=== PATIENT | female | born 2005 | race Two or more races ===

== ENCOUNTER → 2025-03-15 | Emergency (ER) | payer MEDICAID ==
[~2025-03-15] VITALS: Ht 157.5 cm; Wt 68.0 kg
[2025-03-15 21:40] VITALS: BP 110/76; PULSE 86; RESP 20; TEMP 98.3; O2SAT 100
[2025-03-15 22:20] LABS: PLATELET COUNT (AUTO) 266 K/uL (150-450); RED BLOOD CELL COUNT(AUTO) 4.05 MIL/uL (4.00-5.20); RED CELL DISTRIBUTION WIDTH 14.3 % (11.5-14.5); WHITE BLOOD COUNT (AUTO) 7.2 K/uL (4.5-11.0)
[2025-03-15 22:27] LABS: CALCIUM, TOTAL 9.0 mg/dL (8.8-10.5); CREATININE 0.45 mg/dL (0.60-1.30); GLOMERULAR FILTR. RATE CALC > 60 mL/min (>60); GLUCOSE,RANDOM 87 mg/dL (70-110); SODIUM SERUM 139 mmol/L (136-145); UREA NITROGEN, BLOOD 8 mg/dL (7-18)
== END | disposition still patient (30) ==
LOC: EMS 21:32
DX: O00.90 Unspecified ectopic pregnancy without intrauterine pregnancy (principal)
CPT/HCPCS: 80048; 84702; 84703; 85025; 99283